=== PATIENT | male | born 2000 | race Caucasian/White ===

== ENCOUNTER 2023-09-29 07:18 | Emergency (ER) | payer OTHER ==
[2023-09-29 07:34] VITALS: BP 140/77; PULSE 98; RESP 18; TEMP 97.9; BMI 29.2
[2023-09-29] MEDS ORDERED: TETANUS AND DIPHTHERIA TOXOID 0.5 ML DISP.SYRIN IM ONE (07:44)
[2023-09-29] MEDS ORDERED: DIPHTH,PERTUSS(ACELL),TET 0.5 ML DISP.SYRIN IM ONE ×2 (08:26)
[2023-09-29 09:06] LABS: BASO % 0.7 % (0-2.0); EOS % 0.7 % (0-4.5); HEMATOCRIT 46.9 % (35.4-49); LYMPH % 20.3 % (8-40); MCH 26.8 pg (25.7-33.7); MCHC 34.2 g/dl (32.0-35.9); MEAN CELL VOLUME 78.6 fl (80-96); MEAN PLT VOLUME 8.3 fl (7.5-11.1); MONO % 8.9 % (3.8-10.2); NEUT % 69.4 % (42.8-82.8); PLATELET COUNT 354 10^3/uL (134-434); RBC 5.97 M/mm3 (4.00-5.60); RDW 13.6 % (11.9-15.9); WHITE BLOOD COUNT 10.3 K/mm3 (4.0-10.0)
[2023-09-29 09:34] LABS: POTASSIUM 4.4 mmol/L (3.5-5.1)
[2023-09-29 09:35] LABS: ALBUMIN 3.6 g/dl (3.4-5.0); CALCIUM 9.1 mg/dL (8.5-10.1)
[2023-09-29 09:36] LABS: BLOOD UREA NITROGEN 14.9 mg/dL (7-18)
[2023-09-29 09:38] LABS: CREATININE 0.8 mg/dL (0.55-1.3)
[2023-09-29 09:39] LABS: PHOSPHOROUS 4.9 mg/dL (2.5-4.9); TOT PROT 7.6 g/dl (6.4-8.2)
[2023-09-29 09:40] LABS: BILIRUBIN,TOTAL 0.8 mg/dL (0.2-1)
[2023-09-29 17:54] LABS: HIV INTERPRETATION NEGATIVE (NEGATIVE)
== END 2023-09-29 09:00 | disposition home or self-care (01) ==
LOC: JER 07:18 → JERFT 07:18
PROC: 3E0234Z Introduction of Serum, Toxoid and Vaccine into Muscle, Percutaneous Approach (ICD-10-PCS; principal; 2023-09-29)
DX: S50.811A Abrasion of right forearm, initial encounter (principal); W50.4XXA Accidental scratch by another person, initial encounter; Y93.89 Activity, other specified; Y92.239 Unspecified place in hospital as the place of occurrence of the external cause; Z77.21 Contact with and (suspected) exposure to potentially hazardous body fluids
CPT/HCPCS: 36415; 80053; 82465; 82977; 83615; 84100; 84478; 85025; 86704; 86803; 87340; 87389; 87517; 90715; 99283-25